=== PATIENT | female | born 1990 | race Caucasian/White ===

== ENCOUNTER → 2017-04-20 | Outpatient (CLI) | payer OTHER ==
--- NOTE | 2017-04-21 02:15 | CT ---
History migraines. Comparison none. TECHNIQUE: Multiple axial sections were obtained of the brain with intravenous contrast. FINDINGS: The ventricles and sulci appear normal. There is no mass effect nor midline shift. There is no sign o f intracranial hemorrhage. There is no pathologic enhancement. The calvarium is intact. There is raymundo r mucosal thickening in the ethmoid air cells. CONCLUSION: Minimal ethmoid sinusitis. Otherwise negative CT scan of the brain.
== END | disposition home or self-care (01) ==
LOC: RADCTMAIN 19:11
PROVIDERS: ATTEND Pediatrics
DX: R41.3 Other amnesia (principal)
CPT/HCPCS: 70460; Q9967

== ENCOUNTER → 2019-03-02 | Outpatient (CLI) | payer OTHER ==
--- NOTE | 2019-03-02 11:56 | FL ---
Barium swallow HISTORY: Dysphagia 1 minute 14 seconds fluoroscopy time, 99 intraoperative images Patient was evaluated under real-time fluoroscopy following oral barium administration. The swallowing mechanism is normal. There is no obstruction to flow. No extrinsic or intrinsic esopha geal abnormality. No evident hiatal hernia or gastroesophageal reflux. IMPRESSION: Normal barium swallow.
== END | disposition home or self-care (01) ==
LOC: RADUSWWP 09:45
PROVIDERS: ATTEND Pediatrics
DX: R13.10 Dysphagia, unspecified (principal)
CPT/HCPCS: 74220

== ENCOUNTER 2020-07-22 11:31 | Emergency (ER) | payer OTHER ==
[2020-07-22 11:41] VITALS: BP 138/91; PULSE 100; TEMP 97.9
--- NOTE | 2020-07-22 11:46 | ED ---
Recheck HPI - General Source: patient, RN notes reviewed Mode of arrival: ambulatory Limitations: no limitations <Vern Washburn - Last Filed: 07/22/20 12:02> <Rosie Fischer - Last Filed: 07/28/20 19:32> - General Chief Complaint: Recheck/Abnormal Lab/Rx Stated Complaint: wants covid testing Time Seen by Provider: 07/22/20 11:32 - History of Present Illness Initial Comments: 29-year-old female sent emergency Department with chief complaint of covid exposure. Patient states that this happened 5-6 days ago at work. Patient states that she had minimal headache no nasal congestion or significant complaints. Denies any chest pain shortness breath DIARRHEA CONSTIPATION. NO FEVERS OR CHILLS. (Vern Washburn) - Related Data Allergies Allergy/AdvReac Type Severity Reaction Status Date / Time ciprofloxacin [From Cipro] Allergy Swelling Verified 07/22/20 11:42 epinephrine Allergy Rash/Hives Verified 07/22/20 11:42 Review of Systems ROS Other: All systems not noted in ROS Statement are negative. <Vern Washburn - Last Filed: 07/22/20 12:02> ROS Other: All systems not noted in ROS Statement are negative. <Rosie Fischer - Last Filed: 07/28/20 19:32> ROS Statement: Those systems with pertinent positive or pertinent negative responses have been documented in the HPI. Past Medical History Past Medical History: No Reported History History of Any Multi-Drug Resistant Organisms: None Reported Past Surgical History: Adenoidectomy, Appendectomy, Back Surgery, Tonsillectomy Past Psychological History: Anxiety, Depression Smoking Status: Never smoker Past Alcohol Use History: None Reported Past Drug Use History: None Reported <Vern Washburn - Last Filed: 07/22/20 12:02> General Exam Limitations: no limitations General appearance: alert, in no apparent distress Head exam: Present: atraumatic, normocephalic, normal inspection Eye exam: Present: normal appearance, PERRL, EOMI. Absent: scleral icterus, conjunctival injection, periorbital swelling ENT exam: Present: normal exam, normal oropharynx, mucous membranes moist, TM's normal bilaterally Neck exam: Present: normal inspection, full ROM. Absent: tenderness, meningismus, lymphadenopathy Respiratory exam: Present: normal lung sounds bilaterally. Absent: respiratory distress, wheezes, rales, rhonchi, stridor Cardiovascular Exam: Present: regular rate, normal rhythm, normal heart sounds. Absent: systolic murmur, diastolic murmur, rubs, gallop, clicks Neurological exam: Present: alert, oriented X3 Skin exam: Present: warm, dry, intact, normal color. Absent: rash <Vern Washburn - Last Filed: 07/22/20 12:02> Course Vital Signs 07/22/20 07/22/20 11:39 12:06 Temperature 97.9 F Pulse Rate 100 Respiratory 20 18 Rate Blood Pressure 138/91 O2 Sat by Pulse 100 Oximetry Medical Decision Making <Vern Washburn - Last Filed: 07/22/20 12:02> <Rosie Fischer - Last Filed: 07/28/20 19:32> - Medical Decision Making 29-year-old presented for covid testing. Asymptomatic patient had PCR testing will follow-up on results. (Vern Washburn) I was available for consultation in the emergency department. The history and physical exam were done by the midlevel provider. I was consulted for this patients care. I reviewed the case with the midlevel provider and based on thei r presentation of the patient, I agree with the assessment, medical decision making and plan of care as documented. Chart was dictated using [employer] dictation software. Attempts were made to correct any dictation errors however some typographical errors may persist. Patient was seen during a national state of emergency due to the Covid-19 pandemic. (Rosie Fischer) - Lab Data Lab Results 07/22/20 Range/Units 11:55 Coronavirus (PCR) Not Detected (Not Detected) Disposition Is patient prescribed a controlled substance at d/c from ED?: No Time of Disposition: 11:46 <Vern Washburn - Last Filed: 07/22/20 12:02> <Rosie Fischer - Last Filed: 07/28/20 19:32> Clinical Impression: Encounter for laboratory testing for COVID-19 virus Disposition: HOME SELF-CARE Condition: Stable Additional Instructions: Please return to the Emergency Department if symptoms worsen or any other concerns. Referrals: Kendrick Julio MD [Primary Care Provider] - 1-2 days
[2020-07-22 12:20] VITALS: RESP 18
== END 2020-07-22 12:09 | disposition home or self-care (01) ==
LOC: EC 11:31
DX: R51.9 Headache, unspecified (principal); Z88.1 Allergy status to other antibiotic agents; Z88.8 Allergy status to other drugs, medicaments and biological substances; Z90.49 Acquired absence of other specified parts of digestive tract; Z90.89 Acquired absence of other organs; Z20.828 Contact with and (suspected) exposure to other viral communicable diseases
CPT/HCPCS: 99284; U0003